=== PATIENT | male | born 1975 | race Caucasian/White ===

== ENCOUNTER 2018-12-05 10:47 | Emergency (ER) | payer BC, SELFPAY ==
[2018-12-05 10:48] VITALS: BP 158/103; PULSE 64; RESP 18; TEMP 36.9; O2SAT 95; BMI 27.6
--- NOTE | 2018-12-05 10:54 | RAD_ITS ---
STUDY: X-RAY - RIGHT HAND REASON FOR EXAM: Male, 43 years old. Wrist and hand pain TECHNIQUE: 3 view(s) of the hand. COMPARISON: None. FINDINGS: At the second DIP joint, there is a small calcific density which is likely an accessory ossicle and less likely tiny avulsion fracture. Recommend correlation with point tenderness. Remainder of the right hand is within normal limits RAD/Hand Min 3 Views IMPRESSION: As above Electronically Signed: Tushar Hinson DO at 11:58 EDT Tel , Service support ,
--- NOTE | 2018-12-05 10:54 | RAD_ITS ---
STUDY: X-RAY - RIGHT WRIST REASON FOR EXAM: Male, 43 years old. Wrist pain TECHNIQUE: 3 view(s) of the wrist were obtained. COMPARISON: None. FINDINGS: Normal visualized distal radius and ulna. Normal radiocarpal articulation. Normal distal radioulnar articulation. Normal carpal bones. Normal carpal articulations. Normal carpometacarpal articulation of the thumb. Normal second through fifth carpometacarpal articulations. Normal visualized metacarpal bones. The soft tissue structures are unremarkable. RAD/Wrist min 3 Views IMPRESSION: Normal x-ray examination of the wrist. Electronically Signed: Tushar Hinson DO at 11:58 EDT Tel , Service support ,
[2018-12-05 10:57] VITALS: RESP 18
--- NOTE | 2018-12-05 11:35 | ED.VISSUMM ---
- ER Visit Summary Date of Service: 12/05/18 Chief Complaint: Right hand and wrist injury History of Present Illness: The patient is a 43 M crush injury right hand 10 AM at home. [id number]. Using rolling cylinder machine that was manual, and get rolled in. He stopped this and pulled it out. Pain to the wrist. Took Advil. Tetanus unknown. No paresthesias. No loss of function. No previous similar incident Physical Examination: General: Alert and oriented ?3, no acute distress HEENT: Normocephalic, atraumatic. Moist mucosa membranes Neck: supple, nontender. Cardiovascular: Regular rate and rhythm, no murmurs Respiratory: Normal breath sounds, symmetric, no distress Abdomen: Soft, nontender, nondistended Extremities: Right upper extremity: No elbow pain. There is tender palpation wrist distal radius there is abrasion of skin on top of this no active bleeding there is no lacerations. There is abrasion to the distal dorsal ring finger with no active bleeding. There is no deformities. No crepitus. Soft compartments of the hand and wrist and forearm. Neuro: no focal neurological deficits. Test Results: Right wrist and hand: No fracture or dislocation, questionable ossicle versus avulsion fracture at the second DIP per radiology. Emergency Department Course and Treatment: Patient crush injury soft compartments. There is no lacerations. Declined any medicines, ice was placed. X-rays negative for fracture. Questionable ossicle versus avulsion fracture DIP, however patient is not tender in this region. Tetanus updated. Wound care dressing per nursing. Follow-up as an outpatient and continue anti-inflammatories as needed. Signs and symptoms for compartment syndrome discussed. All questions answered Treatment Plan: [] Disposition: Discharge Impression: 1. Crush injury right hand and wrist, abrasions, tetanus update This note was generated with [employer] dictation software. It may contain incorrect words, spelling, and punctuation that were not noted in review of the chart prior to signing ED Disposition - Plan for ED Patient: Disposition: Home or Assisted Living Diagnosis: Crushing injury of right wrist, hand, and finger, Abrasions of multiple sites Instructions: ED Crush Injury Hand Fing No Fx Ch, ED Abrasion Referrals: Pablo Box DO [Primary Care Provider] - 5-7 Days
[2018-12-05] MEDS: Diphth,Pertuss(Acell),Tet Vac 0.5 ML Vial IM (12:08)
== END 2018-12-05 12:11 | disposition home or self-care (01) ==
PROVIDERS: Emergency Provider Emergency Medicine; Family Provider Preventive Medicine Occupational Medicine; PCP Preventive Medicine Occupational Medicine
DX: S67.41XA Crushing injury of right wrist and hand, initial encounter (principal); S60.414A Abrasion of right ring finger, initial encounter; W31.89XA Contact with other specified machinery, initial encounter; Y93.9 Activity, unspecified; Y92.009 Unspecified place in unspecified non-institutional (private) residence as the place of occurrence of the external cause; Y99.9 Unspecified external cause status; Z87.891 Personal history of nicotine dependence
CPT/HCPCS: 73110; 73130; 90471; 90715; 99282